=== PATIENT | female | born 1970 | race Caucasian/White ===

== ENCOUNTER 2025-02-19 15:05 | Emergency (ER) | payer BC ==
[~2025-02-19] VITALS: Ht 167.6 cm; Wt 140.6 kg
[2025-02-19] MEDS: ACETAMINOPHEN ES 500 MG TABLET PO ONE (16:00)
[2025-02-19 16:13] LABS: PLATELET COUNT (AUTO) 173 K/uL (150-450); RED BLOOD CELL COUNT(AUTO) 4.74 MIL/uL (4.0-5.2); RED CELL DISTRIBUTION WIDTH 14.3 % (11.5-15.0); WHITE BLOOD COUNT (AUTO) 5.8 K/uL (4.3-11.0)
[2025-02-19 16:16] LABS: CALCIUM, SERUM 9.0 mg/dL (8.5-10.1); CREATININE 0.7 mg/dL (0.6-1.3); SODIUM SERUM 141 mmol/L (136-145); UREA NITROGEN, BLOOD 11 mg/dL (7-18)
[2025-02-19 16:25] LABS: INR 1.06 (0.91-1.10)
[2025-02-19 16:53] LABS: ASPARTATE AMINOTRANSFERASE 20 U/L (15-37); TOTAL PROTEIN, SERUM 6.9 g/dL (6.4-8.2)
[2025-02-19 17:02] LABS: NEUTROPHILS % (MANUAL) 72 (42-76)
[2025-02-19 17:03] LABS: EOSINOPHILS % (MANUAL) 3 % (0-4); LYMPHOCYTES % (MANUAL) 10 % (16-48); MONOCYTES % (MANUAL) 15 % (0-11.0); PLATELET ESTIMATE ADEQUATE
[2025-02-19] MEDS ORDERED: ACETAMINOPHEN ES 500 MG TABLET ONE (17:06)
[2025-02-19 17:11] LABS: APPEARANCE,URINE CLEAR (CLEAR); BLOOD, URINE Trace-intact Ery/uL (NEGATIVE); LEUKOCYTE ESTERASE ,URINE Negative (NEGATIVE); NITRITE, URINE NEGATIVE (NEGATIVE); UGLUCOSE Negative (NEGATIVE)
[2025-02-19 17:22] LABS: ADD URINE CULTURE NO; SQUAMOUS EPITHELIAL CELL,UR Few /HPF (None Seen)
[2025-02-19] MEDS ORDERED: IBUP-1490 PO (17:42)
[2025-02-19] MEDS ORDERED: KETOROLAC TROMETHAMINE INJ 30 MG/ML VIAL ONE (17:48)
[2025-02-19] MEDS: KETOROLAC TROMETHAMINE INJ 30 MG/ML VIAL IM ONE (17:55)
[2025-02-19 18:06] VITALS: BP 144/87; TEMP 98.3; O2SAT 99
[2025-03-19] MEDS ORDERED: DIVA125T2 PO (12:06)
[2025-03-19] MEDS ORDERED: CLIN-27 PO (12:06)
[2025-03-19] MEDS ORDERED: METO50TA7 PO (12:06)
== END 2025-02-19 18:06 | disposition home or self-care (01) ==
LOC: ER 15:20
DX: N93.9 Abnormal uterine and vaginal bleeding, unspecified (principal); I11.0 Hypertensive heart disease with heart failure; I50.9 Heart failure, unspecified; J44.9 Chronic obstructive pulmonary disease, unspecified; E11.9 Type 2 diabetes mellitus without complications; I48.91 Unspecified atrial fibrillation; Z88.0 Allergy status to penicillin; Z88.1 Allergy status to other antibiotic agents; Z88.2 Allergy status to sulfonamides; Z79.899 Other long term (current) drug therapy
CPT/HCPCS: 99285; 76856; 96372; 85027; 80048; 87086; 80076; 85007; 81001; 36415; 85730; 86850; J1885

== ENCOUNTER 2025-03-07 21:00 | Emergency (ER) | payer BC ==
[~2025-03-07] VITALS: Ht 167.6 cm; Wt 158.8 kg
[~2025-03-07 21:00] MED LIST: IBUP-1490 PO
[2025-03-07] MEDS: ACETAMINOPHEN ES 500 MG TABLET PO ONE (21:59)
[2025-03-07] MEDS ORDERED: ACETAMINOPHEN ES 500 MG TABLET ONE (21:59)
[2025-03-07 23:41] VITALS: BP 151/80; TEMP 98.2; O2SAT 96
== END 2025-03-07 23:41 | disposition home or self-care (01) ==
LOC: ER 22:09
DX: S33.5XXA Sprain of ligaments of lumbar spine, initial encounter (principal); S83.91XA Sprain of unspecified site of right knee, initial encounter; S83.92XA Sprain of unspecified site of left knee, initial encounter; J44.9 Chronic obstructive pulmonary disease, unspecified; I11.0 Hypertensive heart disease with heart failure; I48.91 Unspecified atrial fibrillation; I50.9 Heart failure, unspecified; Z88.0 Allergy status to penicillin; Z88.1 Allergy status to other antibiotic agents; Z88.2 Allergy status to sulfonamides; W06.XXXA Fall from bed, initial encounter; Y93.89 Activity, other specified; Y92.89 Other specified places as the place of occurrence of the external cause; Y99.8 Other external cause status
CPT/HCPCS: 72131-TC; 73564-TC

== ENCOUNTER 2025-03-12 08:17 | Inpatient (IN) | payer BC, MEDICAID ==
[~2025-03-12] VITALS: Ht 167.6 cm; Wt 176.2 kg
[2025-03-12] MEDS: CLINDAMYCIN 600 MG in IV D5W 100 ML IV ONE (09:22)
[2025-03-12 09:47] LABS: PLATELET COUNT (AUTO) 215 K/uL (150-450); RED BLOOD CELL COUNT(AUTO) 4.65 MIL/uL (4.0-5.2); RED CELL DISTRIBUTION WIDTH 15.2 % (11.5-15.0); WHITE BLOOD COUNT (AUTO) 7.9 K/uL (4.3-11.0)
[2025-03-12] MEDS: VANCOMYCIN 1 GM in IV D5W 250 ML IV ONE (09:50)
[2025-03-12 09:55] LABS: CALCIUM, SERUM 8.9 mg/dL (8.5-10.1); CREATININE 0.8 mg/dL (0.6-1.3); SODIUM SERUM 143 mmol/L (136-145); UREA NITROGEN, BLOOD 13 mg/dL (7-18)
[2025-03-12 09:59] LABS: APPEARANCE,URINE CLEAR (CLEAR); BLOOD, URINE NEGATIVE Ery/uL (NEGATIVE); LEUKOCYTE ESTERASE ,URINE NEGATIVE (NEGATIVE); NITRITE, URINE NEGATIVE (NEGATIVE); UGLUCOSE NEGATIVE (NEGATIVE)
[2025-03-12 10:06] LABS: LACTIC ACID 1.9 mmol/L (0.4-2.0)
[2025-03-12 10:09] LABS: NT-PRO BNP 119 pg/mL (0-125)
[2025-03-12] MEDS ORDERED: Z GUARD REMEDY 4 OZ OINT TP PRN (10:30)
[2025-03-12] MEDS ORDERED: ONDANSETRON HCL/PF 4 MG/2 ML VIAL IVP PRN (10:30)
[2025-03-12] MEDS ORDERED: MAGNESIUM HYDROXIDE 30 ML UDC PO PRN (10:30)
[2025-03-12] MEDS ORDERED: METO-357 PO (10:34)
[2025-03-12] MEDS ORDERED: DILT240T12 PO (10:34)
[2025-03-12] MEDS ORDERED: ESCI10TA PO (10:34)
[2025-03-12] MEDS ORDERED: METF-440 PO (10:34)
[2025-03-12] MEDS ORDERED: BUPR-96 PO (10:34)
[2025-03-12] MEDS ORDERED: OXYB10TA30 PO (10:34)
[2025-03-12] MEDS ORDERED: ALBU18HF2 IH (10:34)
[2025-03-12] MEDS ORDERED: APIX5TAB PO (10:34)
[2025-03-12] MEDS ORDERED: LISI20TA30 PO (10:34)
[2025-03-12] MEDS ORDERED: GABA-532 PO (10:34)
[2025-03-12] MEDS: DILTIAZEM HCL CD 240 MG PO SCH (11:49)
[2025-03-12] MEDS: APIXABAN 5 MG TABLET PO SCH (11:50)
[2025-03-12] MEDS ORDERED: CLINDAMYCIN IV RTU IN D5W 600 MG/50 ML PIGGYBACK IV SCH (13:00)
[2025-03-12] MEDS: CLINDAMYCIN 600 MG in IV NS 0.9% 46 ML IV SCH (13:06)
[2025-03-12 16:00] VITALS: BP 148/87; TEMP 98.1; O2SAT 96
[2025-03-12] MEDS ORDERED: DEXTROSE 50%-WATER 50 ML DISP.SYRIN IV PRN (18:00)
[2025-03-12] MEDS: NYSTATIN TOP POWDER 15 GM BOTTLE TP SCH (18:05)
[2025-03-12 20:00] VITALS: BP 152/88; TEMP 98.2; O2SAT 93
[2025-03-12] MEDS: ACETAMINOPHEN 325 MG TABLET PO PRN (20:34)
[2025-03-12] MEDS: OXYBUTYNIN CHLORIDE ER 5 MG TAB PO SCH (22:08)
[2025-03-12] MEDS: BLOOD SUGAR DIAGNOSTIC 1 EACH STRIP VI SCH (22:32)
[2025-03-12] MEDS: ZOLPIDEM TARTRATE 5 MG TABLET PO PRN (23:00)
[2025-03-12] MEDS: IBUPROFEN 400 MG TABLET PO ONE (23:22)
[2025-03-12] MEDS ORDERED: MORPHINE SULFATE INJ 4 MG/ML DISP.SYRIN IV PRN (23:30)
[2025-03-13] VITALS: BP 148/66; TEMP 98.2; O2SAT 90
[2025-03-13 04:00] VITALS: BP 134/88; TEMP 97.5; O2SAT 94
[2025-03-13 07:55] LABS: PLATELET COUNT (AUTO) 183 K/uL (150-450); RED BLOOD CELL COUNT(AUTO) 4.47 MIL/uL (4.0-5.2); RED CELL DISTRIBUTION WIDTH 15.0 % (11.5-15.0); WHITE BLOOD COUNT (AUTO) 6.5 K/uL (4.3-11.0)
[2025-03-13 08:00] VITALS: BP 122/91; TEMP 97.9; O2SAT 96
[2025-03-13 08:01] LABS: CALCIUM, SERUM 9.1 mg/dL (8.5-10.1); CREATININE 0.8 mg/dL (0.6-1.3); PHOSPHORUS 4.8 mg/dL (2.5-4.9); SODIUM SERUM 144.0 mmol/L (136-145); UREA NITROGEN, BLOOD 15.0 mg/dL (7-18)
[2025-03-13] MEDS: PANTOPRAZOLE 40 MG TABLET.DR PO SCH (08:03)
[2025-03-13] MEDS ORDERED: METOPROLOL SUCCINATE 50 MG TAB.SR.24H PO SCH (09:00)
[2025-03-13] MEDS: GABAPENTIN 100 MG CAPSULE PO SCH (09:06)
[2025-03-13] MEDS: BUPROPION XL 150 MG TAB.ER.24 PO SCH (09:06)
[2025-03-13] MEDS: ESCITALOPRAM OXALATE (10 MG) 10 MG TABLET PO SCH (09:06)
[2025-03-13] MEDS: LISINOPRIL (20MG) 20 MG TABLET PO SCH (09:06)
[2025-03-13] MEDS: METOPROLOL SUCCINATE 50 MG TAB.SR.24H PO SCH (09:06)
[2025-03-13] MEDS: INSULIN REGULAR, HUMAN 100 UNIT/ML 3 ML VIAL SQ PRN (11:42)
[2025-03-13 12:00] VITALS: BP 110/71; TEMP 98.1; O2SAT 97
[2025-03-13] MEDS ORDERED: IBUPROFEN 400 MG TABLET PO PRN (12:00)
[2025-03-13 16:00] VITALS: BP 100/57; TEMP 97.5; O2SAT 95
[2025-03-13 16:45] LABS: ABG BASE EXCESS 2.9 mmol/L (-2.0-3.0); ABG OXYGEN SATURATION 94.0 % (94.0-98.0); ABG PCO2 54.3 mmHg (32.0-45.0); ABG PH 7.355 (7.350-7.450); ABG PO2 75.5 mmHg (83.0-108.0); ABG TOTAL HEMOGLOBIN 13.6 G/dL (12.0-16.0); FLOW, BLOOD GAS 4.00 L/min (0.00-30.00); FRACTIONATED INSPIRED OXYGEN 37.0 %; SITE, ABG RIGHT RADIAL
[2025-03-13] MEDS: CLOTRIMAZOLE 1% 15 GM TUBE TP SCH (16:55)
[2025-03-13 20:00] VITALS: BP 101/51; TEMP 97.5; O2SAT 95
[2025-03-13] MEDS: HYDROCODONE/APAP 5/325MG TABLET PO PRN (20:28)
[2025-03-13] MEDS: *INSULIN REGULAR(HUMULIN R)HUM 100 UNIT/ML VIAL SQ PRN (23:24)
[2025-03-14] VITALS: BP 100/50; TEMP 98.6; O2SAT 95
[2025-03-14 04:00] VITALS: BP 100/49; TEMP 97.2; O2SAT 95
[2025-03-14 07:12] LABS: PLATELET COUNT (AUTO) 174 K/uL (150-450); RED BLOOD CELL COUNT(AUTO) 4.36 MIL/uL (4.0-5.2); RED CELL DISTRIBUTION WIDTH 15.1 % (11.5-15.0); WHITE BLOOD COUNT (AUTO) 7.0 K/uL (4.3-11.0)
[2025-03-14 07:37] LABS: CALCIUM, SERUM 8.6 mg/dL (8.5-10.1); CREATININE 2.2 mg/dL (0.6-1.3); PHOSPHORUS 5.8 mg/dL (2.5-4.9); SODIUM SERUM 140.0 mmol/L (136-145); UREA NITROGEN, BLOOD 30.0 mg/dL (7-18)
[2025-03-14 08:00] VITALS: BP 100/57; TEMP 98.2; O2SAT 96
[2025-03-14 11:29] LABS: EOSINOPHILS % (MANUAL) 2 % (0-4); LYMPHOCYTES % (MANUAL) 21 % (16-48); MONOCYTES % (MANUAL) 15 % (0-11.0); NEUTROPHILS % (MANUAL) 62 (42-76); PLATELET ESTIMATE ADEQUATE
[2025-03-14 12:00] VITALS: BP 100/68; TEMP 97.5; O2SAT 96
[2025-03-14 12:17] LABS: CALCIUM, SERUM 8.8 mg/dL (8.5-10.1); CREATININE 2.0 mg/dL (0.6-1.3); SODIUM SERUM 138.0 mmol/L (136-145); UREA NITROGEN, BLOOD 34.0 mg/dL (7-18)
[2025-03-14 16:00] VITALS: BP 99/71; TEMP 97.9; O2SAT 95
[2025-03-14 20:00] VITALS: BP 111/59; TEMP 97.7; O2SAT 95
[2025-03-15] VITALS (7 sets, daily range): BP systolic 99–128; BP diastolic 52–100; TEMP 97.5–98.6; O2SAT 93–97
[2025-03-15 07:38] LABS: ASPARTATE AMINOTRANSFERASE 24.0 U/L (15-37); CALCIUM, SERUM 9.0 mg/dL (8.5-10.1); CREATININE 1.1 mg/dL (0.6-1.3); PHOSPHORUS 3.7 mg/dL (2.5-4.9); SODIUM SERUM 141.0 mmol/L (136-145); TOTAL PROTEIN, SERUM 6.8 g/dL (6.4-8.2); UREA NITROGEN, BLOOD 26.0 mg/dL (7-18)
[2025-03-15 07:41] LABS: PLATELET COUNT (AUTO) 177 K/uL (150-450); RED BLOOD CELL COUNT(AUTO) 4.38 MIL/uL (4.0-5.2); RED CELL DISTRIBUTION WIDTH 15.1 % (11.5-15.0); WHITE BLOOD COUNT (AUTO) 6.2 K/uL (4.3-11.0)
[2025-03-15 16:50] LABS: ABG BASE EXCESS 3.9 mmol/L (-2.0-3.0); ABG OXYGEN SATURATION 92.7 % (94.0-98.0); ABG PCO2 52.3 mmHg (32.0-45.0); ABG PH 7.380 (7.350-7.450); ABG PO2 68.1 mmHg (83.0-108.0); ABG TOTAL HEMOGLOBIN 13.9 G/dL (12.0-16.0); SITE, ABG RIGHT RADIAL
[2025-03-16 04:00] VITALS: BP 98/58; TEMP 98; O2SAT 98
[2025-03-16 08:00] VITALS: BP 89/61; TEMP 97.8; O2SAT 99
[2025-03-16 08:04] LABS: PLATELET COUNT (AUTO) 194 K/uL (150-450); RED BLOOD CELL COUNT(AUTO) 4.60 MIL/uL (4.0-5.2); RED CELL DISTRIBUTION WIDTH 14.9 % (11.5-15.0); WHITE BLOOD COUNT (AUTO) 8.7 K/uL (4.3-11.0)
[2025-03-16 08:05] LABS: CALCIUM, SERUM 9.4 mg/dL (8.5-10.1); CREATININE 0.8 mg/dL (0.6-1.3); SODIUM SERUM 145.0 mmol/L (136-145); UREA NITROGEN, BLOOD 18.0 mg/dL (7-18)
[2025-03-16 08:06] LABS: PHOSPHORUS 2.1 mg/dL (2.5-4.9)
[2025-03-16 16:00] VITALS: BP 159/94; TEMP 97.4; O2SAT 93
[2025-03-16] MEDS: K PHOS NEUTRAL 250 MG TABLET PO ONE (16:45)
[2025-03-16 20:00] VITALS: BP 122/73; TEMP 98.1; O2SAT 92
[2025-03-16] MEDS: ALBUTEROL FS 2.5 MG/3 ML VIAL.NEB IH PRN (21:52)
[2025-03-17] VITALS (7 sets, daily range): BP systolic 145–172; BP diastolic 84–100; TEMP 97.7–98.1; O2SAT 93–99
[2025-03-17 06:28] LABS: PLATELET COUNT (AUTO) 179 K/uL (150-450); RED BLOOD CELL COUNT(AUTO) 4.48 MIL/uL (4.0-5.2); RED CELL DISTRIBUTION WIDTH 14.9 % (11.5-15.0); WHITE BLOOD COUNT (AUTO) 8.1 K/uL (4.3-11.0)
[2025-03-17 06:48] LABS: CALCIUM, SERUM 9.1 mg/dL (8.5-10.1); CREATININE 0.8 mg/dL (0.6-1.3); PHOSPHORUS 2.8 mg/dL (2.5-4.9); SODIUM SERUM 145.0 mmol/L (136-145); UREA NITROGEN, BLOOD 15.0 mg/dL (7-18)
[2025-03-17] MEDS: DIVALPROEX SODIUM 125 MG TABLET.DR PO SCH (10:12)
[2025-03-17] MEDS: MAGNESIUM OXIDE 400 MG TABLET PO ONE (10:13)
[2025-03-18] VITALS (9 sets, daily range): BP systolic 112–156; BP diastolic 65–90; TEMP 97.5–98.3; O2SAT 94–99
[2025-03-18 06:21] LABS: PLATELET COUNT (AUTO) 186 K/uL (150-450); RED BLOOD CELL COUNT(AUTO) 4.62 MIL/uL (4.0-5.2); RED CELL DISTRIBUTION WIDTH 14.9 % (11.5-15.0); WHITE BLOOD COUNT (AUTO) 6.9 K/uL (4.3-11.0)
[2025-03-18 06:38] LABS: CALCIUM, SERUM 8.9 mg/dL (8.5-10.1); CREATININE 0.9 mg/dL (0.6-1.3); PHOSPHORUS 3.3 mg/dL (2.5-4.9); SODIUM SERUM 143.0 mmol/L (136-145); UREA NITROGEN, BLOOD 15.0 mg/dL (7-18)
[2025-03-18] MEDS: CLINDAMYCIN HCL 150 MG CAPSULE PO SCH (12:14)
[2025-03-19] VITALS (10 sets, daily range): BP systolic 106–150; BP diastolic 54–92; TEMP 97.5–98.2; O2SAT 94–99
[2025-03-19 05:43] LABS: PLATELET COUNT (AUTO) 207 K/uL (150-450); RED BLOOD CELL COUNT(AUTO) 4.84 MIL/uL (4.0-5.2); RED CELL DISTRIBUTION WIDTH 14.8 % (11.5-15.0); WHITE BLOOD COUNT (AUTO) 6.2 K/uL (4.3-11.0)
[2025-03-19 05:56] LABS: CALCIUM, SERUM 9.0 mg/dL (8.5-10.1); CREATININE 0.8 mg/dL (0.6-1.3); PHOSPHORUS 3.6 mg/dL (2.5-4.9); SODIUM SERUM 143.0 mmol/L (136-145); UREA NITROGEN, BLOOD 17.0 mg/dL (7-18)
[2025-03-19 09:07] LABS: EOSINOPHILS % (MANUAL) 11 % (0-4); LYMPHOCYTES % (MANUAL) 24 % (16-48); MONOCYTES % (MANUAL) 16 % (0-11.0); NEUTROPHILS % (MANUAL) 49 (42-76); PLATELET ESTIMATE ADEQUATE
[2025-03-19] MEDS ORDERED: METO50TA7 PO (12:06)
[2025-03-19] MEDS ORDERED: CLIN-27 PO (12:06)
[2025-03-19] MEDS ORDERED: DIVA125T2 PO (12:06)
[2025-03-19] MEDS: MAG HYDROX/AL HYDROX/SIMETH 30 ML UDC PO PRN (13:58)
[2025-03-19] MEDS: APIXABAN 5 MG TABLET PO SCH (21:33)
[2025-03-20 02:29] VITALS: O2SAT 93
[2025-03-20 02:44] VITALS: O2SAT 97
[2025-03-20 04:00] VITALS: BP 162/92; TEMP 97.7; O2SAT 96
[2025-03-20 07:19] LABS: VALPROIC ACID 3.0 ug/mL (50-100)
[2025-03-20 07:30] LABS: ASPARTATE AMINOTRANSFERASE 25.0 U/L (15-37); TOTAL PROTEIN, SERUM 7.2 g/dL (6.4-8.2)
[2025-03-20 08:00] VITALS: BP 156/88; TEMP 97.7; O2SAT 96
[2025-03-20 08:47] VITALS: BP 156/88
== END 2025-03-20 13:52 | disposition home or self-care (01) | DRG 720 ==
LOC: ER 08:19 → TELE1 09:55 → MEDSG1 03-15 09:39 → TELE1 03-16 12:56 → MEDSG1 03-19 12:11
PROVIDERS: ADMIT Student in an Organized Health Care Education/Training Program; ATTEND Nurse Practitioner Acute Care
PROC: 5A09357 Assistance with Respiratory Ventilation, Less than 24 Consecutive Hours, Continuous Positive Airway Pressure (ICD-10-PCS; principal; 2025-03-13)
DX: A41.9 Sepsis, unspecified organism (principal); J96.02 Acute respiratory failure with hypercapnia; G93.41 Metabolic encephalopathy; J96.01 Acute respiratory failure with hypoxia; D68.59 Other primary thrombophilia; Z68.44 Body mass index [BMI] 60.0-69.9, adult; L03.115 Cellulitis of right lower limb; I10 Essential (primary) hypertension; I48.91 Unspecified atrial fibrillation; N17.9 Acute kidney failure, unspecified; E66.2 Morbid (severe) obesity with alveolar hypoventilation; E11.9 Type 2 diabetes mellitus without complications; I87.2 Venous insufficiency (chronic) (peripheral); J44.9 Chronic obstructive pulmonary disease, unspecified; M89.8X9 Other specified disorders of bone, unspecified site; Z88.2 Allergy status to sulfonamides; Z88.0 Allergy status to penicillin; Z88.1 Allergy status to other antibiotic agents; G89.29 Other chronic pain; F41.9 Anxiety disorder, unspecified; F39 Unspecified mood [affective] disorder; Z79.01 Long term (current) use of anticoagulants; Z79.899 Other long term (current) drug therapy; Z79.51 Long term (current) use of inhaled steroids; E87.70 Fluid overload, unspecified; T44.5X5A Adverse effect of predominantly beta-adrenoreceptor agonists, initial encounter; T39.395A Adverse effect of other nonsteroidal anti-inflammatory drugs [NSAID], initial encounter; Y92.9 Unspecified place or not applicable; Z91.81 History of falling
CPT/HCPCS: 36415; 36600; 71045-TC; 76770-TC; 80048-TC; 80053-TC; 80076-TC; 80164-TC; 82803-TC; 82962-TC; 83605-TC; 83735-TC; 83880; 84100-TC; 84484-TC; 85025-TC; 85027-TC; 87040-TC; 87081-TC; 87086-TC; 93307-TC; 94660; 94760-TC; 94799-TC; 97110-TC; 97116-TC; 97530-TC; A4223; G0378; J1815; J3373; J3490; J7050; J7060